=== PATIENT | female | born 1995 | race Two or more races ===

== ENCOUNTER 2018-01-03 21:12 | Emergency (ER) | payer SELFPAY ==
[2018-01-03] MEDS: TETRACAINE 0.5% OPHTH SOLUTION 4ML BOTTLE. OU (21:37)
[2018-01-03] MEDS: FLUORESCEIN OPHTH TEST STRIP. OU (21:37)
== END 2018-01-03 21:49 | disposition home or self-care (01) ==
LOC: ER 21:12
DX: H10.9 Unspecified conjunctivitis (principal); F12.10 Cannabis abuse, uncomplicated
CPT/HCPCS: 99283

== ENCOUNTER 2018-10-26 09:34 | Emergency (ER) | payer SELFPAY ==
[~2018-10-26] VITALS: Ht 167.6 cm; Wt 77.1 kg
[~2018-10-26 09:34] MED LIST: CIPR2.5D EACHEYE; CYCL10TA2 PO
[2018-10-26 10:01] VITALS: BP 115/66
--- NOTE | 2018-10-26 10:02 | PHYS DOC ---
Past Medical History Past Medical History: No Pertinent History Past Surgical History: No Surgical History Alcohol Use: None Drug Use: Marijuana Adult General Chief Complaint Chief Complaint: BACK PAIN - NO INJURY HPI HPI Patient is a 23 year old female who presents with low back pain. This started yesterday she was getting out of her truck. No loss of bowel or bladder control. No fever. No trauma. Patient has been having minor low back pain issues for a while. Patient works as a log loader, has been in the job for the past year. Denies any increased lifting, twisting, turning. Patient has no personal history of cancer. No prolonged travel.[] Review of Systems Review of Systems Constitutional: Denies fever or chills [] Eyes: Denies change in visual acuity, redness, or eye pain [] HENT: Denies nasal congestion or sore throat [] Respiratory: Denies cough or shortness of breath [] Cardiovascular: No chest pain or palpitations[] GI: Denies abdominal pain, nausea, vomiting, bloody stools or diarrhea [] : Denies dysuria or hematuria [] Musculoskeletal: Denies joint pain, see history of present illness [] Integument: Denies rash or skin lesions [] Neurologic: Denies headache, focal weakness or sensory changes [] Endocrine: Denies polyuria or polydipsia [] All other systems were reviewed and found to be within normal limits, except as documented in this note. Current Medications Current Medications Current Medications Medications (Trade) Dose Ordered Sig/Ousmane Start Time Stop Time Status Last Admin Dose Admin Ketorolac Tromethamine (Toradol 15mg Vial) 15 mg 1X ONCE 10/26/18 10:30 10/26/18 10:31 DC 10/26/18 10:18 15 MG Allergies Allergies Allergies Coded Allergies Type Severity Reaction Last Updated Verified No Known Drug Allergies 09/06/13 No Physical Exam Physical Exam Constitutional: Well developed, well nourished, mild to moderate discomfort, non -toxic appearance. [] HENT: Normocephalic, atraumatic, bilateral external ears normal, oropharynx moist, no oral exudates, nose normal. [] Eyes: PERRLA, EOMI, conjunctiva normal, no discharge. [] Neck: Normal range of motion, no tenderness, supple, no stridor. [] Cardiovascular:Heart rate regular rhythm, no murmur [] Lungs & Thorax: Bilateral breath sounds clear to auscultation [] Abdomen: Bowel sounds normal, soft, no tenderness, no masses, no pulsatile masses. [] Skin: Warm, dry, no erythema, no rash. [] Back: Tenderness over the left lumbar paraspinal musculature. No step-off, no crepitus, normal gait[] Extremities: No tenderness, no cyanosis, no clubbing, ROM intact, no edema. [] Neurologic: Alert and oriented X 3, normal motor function, normal sensory function, no focal deficits noted. [] Psychologic: Affect normal, judgement normal, mood normal. [] Current Patient Data Vital Signs Vital Signs Date Time Temp Pulse Resp B/P (MAP) Pulse Ox O2 Delivery O2 Flow Rate FiO2 10/26/18 10:01 98.3 84 20 115/66 (82) 96 Room Air 98.3 Lab Values Laboratory Tests Test 10/26/18 09:40 Urine Collection Type Unknown Urine Color Yellow Urine Clarity Clear Urine pH 6.0 Urine Specific [place] 1.025 Urine Protein Negative mg/dL (NEG-TRACE) Urine Glucose (UA) Negative mg/dL (NEG) Urine Ketones (Stick) Negative mg/dL (NEG) Urine Blood Negative (NEG) Urine Nitrite Negative (NEG) Urine Bilirubin Negative (NEG) Urine Urobilinogen Dipstick 1.0 mg/dL (0.2 mg/dL) Urine Leukocyte Esterase Negative (NEG) Urine RBC 1-2 /HPF (0-2) Urine WBC 1-4 /HPF (0-4) Urine Squamous Epithelial Cells Many /LPF Urine Bacteria Many /HPF (0-FEW) Urine Mucus Marked /LPF Urine Test Negative (NEG) EKG EKG [] Radiology/Procedures Radiology/Procedures PROCEDURE: LUMBAR SPINE 2-3V LUMBAR SPINE 2-3V History: LOWER BACK PAIN AFTER INJURY X1 DAY AGO. RADIATES DOWN LEFT LEG. Comparison: None Vertebral body height and alignment are intact. Minimal loss of height of the L4-L5 intervertebral disc. Disc spaces otherwise intact. No aggressive bone destruction. No evidence of an acute fracture. Moderate retained stool in the right colon. IMPRESSION: No evidence of acute fracture or subluxation. Electronically signed by: Jesse Jeffers MD (10/26/2018 10:40 AM) [email or web address][] Course & Med Decision Making Course & Med Decision Making Pertinent Labs and Imaging studies reviewed. (See chart for details) Medical decision making: No evidence of pyelonephritis, no evidence of ectopic since both the UA and the test were negative. No evidence of an acute spinous process. No evidence of meningitis or encephalitis.[] Dragon Disclaimer Dragon Disclaimer This electronic medical record was generated, in whole or in part, using a voice recognition dictation system. Departure Departure Impression: Primary Impression: Low back pain Disposition: HOME, SELF-CARE Condition: IMPROVED Referrals: NO PCP (PCP) Patient Instructions: Back Pain, Adult Additional Instructions: Follow-up with your regular doctor in 2 days. If you do not have a regular doctor list of local clinics will be provided for you. Return to the ER if worsening pain, fever of more than 101, loss of bowel or bladder control, or any other concerns. Scripts Orphenadrine Citrate (ORPHENADRINE CITRATE) 100 Mg Tablet.er 100 MG PO BID, #20 TAB.SR Prov: TORREY WHITE DO 10/26/18 Meloxicam (MELOXICAM) 7.5 Mg Tablet 7.5 MG PO DAILY, #20 TAB Prov: TORREY WHITE DO 10/26/18 Problem Qualifiers Primary Impression: Low back pain Chronicity: acute Back pain laterality: left Sciatica presence: without sciatica Qualified Codes: M54.5 - Low back pain TORREY WHITE DO Oct 26, 2018 10:02
[2018-10-26 10:03] LABS: BILIRUBIN,URINE NEGATIVE (NEG); CLARITY,URINE CLEAR; COLOR,URINE YELLOW; NITRITE,URINE NEGATIVE (NEG); PROTEIN,URINE NEGATIVE (NEG-TRACE)
[2018-10-26 10:09] LABS: U PREG PATIENT NEGATIVE (NEG)
[2018-10-26 10:14] LABS: BACTERIA,URINE MANY /HPF (0-FEW); SQUAMOUS EPITHELIAL CELL,UR MANY /LPF
[2018-10-26] MEDS ORDERED: KETOROLAC 15 MG/ML VIAL. IM ONE (10:30)
--- NOTE | 2018-10-26 10:44 | RAD ---
LUMBAR SPINE 2-3V History: LOWER BACK PAIN AFTER INJURY X1 DAY AGO. RADIATES DOWN LEFT LEG. Comparison: None Vertebral body height and alignment are intact. Minimal loss of height of the L4-L5 intervertebral disc. Disc spaces otherwise intact. No aggressive bone destruction. No evidence of an acute fracture. Moderate retained stool in the right colon. IMPRESSION: No evidence of acute fracture or subluxation. Electronically signed by: Jesse Jeffers MD (10/26/2018 10:40 AM) [email or web address]
[2018-10-26] MEDS ORDERED: MELO7.5T29 PO (10:50)
[2018-10-26] MEDS ORDERED: ORPH100T PO (10:50)
[2018-10-26] MEDS ORDERED: CYCLOBENZAPRINE 10 MG TABLET. PO ONE (11:30)
== END 2018-10-26 11:37 | disposition home or self-care (01) ==
LOC: ER 09:34
DX: M54.5 Low back pain (principal)
CPT/HCPCS: 72100; 81001; 81025; 87086; 96372; 99284; J1885

== ENCOUNTER 2019-10-27 09:15 | Emergency (ER) | payer SELFPAY ==
[~2019-10-27] VITALS: Ht 167.6 cm; Wt 72.2 kg
[~2019-10-27 09:15] MED LIST changes: +MELO7.5T29 PO; +ORPH100T PO
[2019-10-27 10:09] VITALS: BP 118/64
[2019-10-27] MEDS ORDERED: CEPH-264 PO (10:14)
[2019-10-27] MEDS ORDERED: HYDR-3164 PO (10:14)
[2019-10-27] MEDS ORDERED: LIDOCAINE 1% Multi-Dose 20 ML VIAL. INJ ONE (10:15)
[2019-10-27] MEDS ORDERED: HYDROcodone/APAP 5/325MG 1 TAB TABLET PO ONE (10:15)
--- NOTE | 2019-10-27 10:15 | PHYS DOC ---
Past Medical History Past Medical History: No Pertinent History Past Surgical History: No Surgical History Smoking Status: Current Some Day Smoker Alcohol Use: None Drug Use: None Adult General Chief Complaint Chief Complaint: ABSCESS HPI HPI Patient is a 24 year old female who presents with right labial abscess for last week. Patient rates her pain a 10 out of 10. She denies any fevers, nausea, vomiting, abdominal pain, dysuria, diarrhea. Review of Systems Review of Systems Integument: Labial abscess. Denies rash or skin lesions [] All other systems were reviewed and found to be within normal limits, except as documented in this note. Current Medications Current Medications Current Medications Medications (Trade) Dose Ordered Sig/Ousmane Start Time Stop Time Status Last Admin Dose Admin Acetaminophen/ Hydrocodone Bitart (Lortab 5/325) 1 tab 1X ONCE 10/27/19 10:15 10/27/19 10:16 DC 10/27/19 10:21 1 TAB Lidocaine HCl (Lidocaine 1% 20ml Vial) 20 ml 1X ONCE 10/27/19 10:15 10/27/19 10:16 DC 10/27/19 10:22 20 ML Allergies Allergies Allergies Coded Allergies Type Severity Reaction Last Updated Verified No Known Drug Allergies 09/06/13 No Physical Exam Physical Exam Constitutional: Well developed, well nourished, no acute distress, non-toxic appearance. [] HENT: Normocephalic, atraumatic, bilateral external ears normal, oropharynx moist, no oral exudates, nose normal. [] Eyes: PERRLA, EOMI, conjunctiva normal, no discharge. [] Neck: Normal range of motion, no tenderness, supple, no stridor. [] Cardiovascular:Heart rate regular rhythm, no murmur [] Lungs & Thorax: Bilateral breath sounds clear to auscultation [] Abdomen: Bowel sounds normal, soft, no tenderness, no masses, no pulsatile masses. [] Skin: Warm, dry, no erythema, no rash. Right labial abscess dollar coin sized. [] Back: No tenderness, no CVA tenderness. [] Extremities: No tenderness, no cyanosis, no clubbing, ROM intact, no edema. [] Neurologic: Alert and oriented X 3, normal motor function, normal sensory f unction, no focal deficits noted. [] Psychologic: Affect normal, judgement normal, mood normal. [] Current Patient Data Vital Signs Vital Signs Date Time Temp Pulse Resp B/P (MAP) Pulse Ox O2 Delivery O2 Flow Rate FiO2 10/27/19 10:09 99.0 64 18 118/64 (82) 100 Room Air 99.0 EKG EKG [] Radiology/Procedures Radiology/Procedures [] Course & Med Decision Making Course & Med Decision Making Pertinent Labs and Imaging studies reviewed. (See chart for details) Rates her pain a 10 out of 10. Associated Cellulitis or pink tenderness of surrounding skin. Patient to follow-up in 48 hours for a wound recheck. Patient is placed on Keflex. Abscess Incision and Drainage with irrigation by me: Location: Right labia Anesthesia: Local 1% Lidocaine Technique: Irrigated. Disrupted loculations w/ instrumentation Packing: None Complications: Neurovascularly intact post procedure 48 hour wound check. Scar minimization instructions given. ED Ultrasound: Abscess localized by me using concurrent ultrasound guidance and assessment of the anatomy. Real time image archived in the medical record confirms anatomy. Patient's skin symptoms have stabilized while they have been evaluated in the department and are appropriate for outpatient care and work up. Exam and w/u not consistent w/ sepsis, deep space infection, or foreign body. [] Dragon Disclaimer Dragon Disclaimer This electronic medical record was generated, in whole or in part, using a voice recognition dictation system. Departure Departure Impression: Primary Impression: Abscess Disposition: 01 HOME, SELF-CARE Condition: STABLE Referrals: NO PCP (PCP) Patient Instructions: Abscess, Care After, Abscess, Perineal, Sitz Bath Additional Instructions: Use sitz baths. Take all of medication as prescribed. Follow up with doctor or here at the hospital in 48 hours for a wound recheck. Scripts Hydrocodone/Apap 5-325 (NORCO 5-325 TABLET) 1 Each Tablet 1 TAB PO PRN Q6HRS PRN for PAIN, #10 TAB 0 Refills Prov: LAUREN GIBSON [employer]ING OFFICER 10/27/19 Cephalexin (KEFLEX) 500 Mg Capsule 1 CAP PO TID for 7 Days, #21 CAP 0 Refills Prov: LAUREN GIBSON [employer] COMMANDING OFFICER 10/27/19 LAUREN GIBSON POLICE COMMANDING OFFICER Oct 27, 2019 10:15
== END 2019-10-27 10:51 | disposition home or self-care (01) ==
LOC: ER 09:15
DX: N76.4 Abscess of vulva (principal); F17.200 Nicotine dependence, unspecified, uncomplicated
CPT/HCPCS: 56405; 99284-25

== ENCOUNTER 2020-04-16 03:35 | Emergency (ER) | payer SELFPAY ==
[~2020-04-16] VITALS: Ht 167.6 cm; Wt 77.2 kg
[~2020-04-16 03:35] MED LIST changes: +CEPH-264 PO; +HYDR-3164 PO
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
[2020-04-16 04:37] LABS: BILIRUBIN,URINE SMALL (NEG); CLARITY,URINE CLOUDY; COLOR,URINE AMBER; NITRITE,URINE NEGATIVE (NEG); PROTEIN,URINE 30 mg/dL (NEG-TRACE)
[2020-04-16 04:42] LABS: BASO # 0.1 x10^3/uL (0.0-0.2); BASO % 1 % (0-3); EOS % 1 % (0-3); HEMATOCRIT 34.2 % (36.0-47.0); HEMOGLOBIN 11.6 g/dL (12.0-15.5); LYMPH # 1.1 x10^3/uL (1.0-4.8); LYMPH % 11 % (24-48); MEAN CORPUSCULAR HEMOGLOBIN 31 pg (25-35); MEAN CORPUSCULAR HGB CONC 34 g/dL (31-37); MEAN CORPUSCULAR VOLUME 91 fL (79-100); MONO # 0.6 x10^3/uL (0.0-1.1); MONO % 6 % (0-9); NEUT # 8.2 x10^3/uL (1.8-7.7); NEUT % 81 % (31-73); PLATELET COUNT 261 x10^3/uL (140-400); RED BLOOD COUNT 3.77 x10^6/uL (3.50-5.40); RED CELL DISTRIBUTION WIDTH 12.8 % (11.5-14.5); WHITE BLOOD COUNT 10.1 x10^3/uL (4.0-11.0)
[2020-04-16 04:44] LABS: BARBITURATES NEG (NEG); BENZODIAZEPINES NEG (NEG); CANNABINOIDS NEG (NEG); COCAINE NEG (NEG); METHADONE NEG (NEG); OPIATES NEG (NEG); PHENCYCLIDINE NEG (NEG)
[2020-04-16] MEDS ORDERED: DIPH,PERTUSS(ACELL),TET VAC/PF 0.5 ML SYRINGE. VAX IM ONE (04:45)
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
[2020-04-16 04:48] LABS: AMPHETAMINE/METHAMPHETAMINE NEG (NEG)
[2020-04-16 04:51] LABS: PROTHROMBIN TIME PATIENT 13.6 SEC (11.7-14.0)
[2020-04-16 04:54] LABS: CREATININE 0.9 mg/dL (0.6-1.0); GFR 75.7; POTASSIUM 3.6 mmol/L (3.5-5.1)
[2020-04-16 05:00] LABS: AMORPHOUS SEDIMENT,UR PRESENT /HPF; BACTERIA,URINE FEW /HPF (0-FEW); SQUAMOUS EPITHELIAL CELL,UR MOD /LPF
[2020-04-16 06:10] VITALS: BP 115/61
== END 2020-04-16 06:05 | disposition home or self-care (01) ==
LOC: ER 03:35
DX: S01.81XA Laceration without foreign body of other part of head, initial encounter (principal); S20.221A Contusion of right back wall of thorax, initial encounter; S06.0X1A Concussion with loss of consciousness of 30 minutes or less, initial encounter; F10.229 Alcohol dependence with intoxication, unspecified; R55 Syncope and collapse; M54.5 Low back pain; F17.200 Nicotine dependence, unspecified, uncomplicated; Y08.89XA Assault by other specified means, initial encounter; Y93.89 Activity, other specified; Y92.89 Other specified places as the place of occurrence of the external cause; Y99.8 Other external cause status
CPT/HCPCS: 12011; 36415; 70450; 70486; 72125; 80048; 80307; 81001; 81025; 85025; 85610; 85730; 90471; 90715; 99285; G0480

== ENCOUNTER 2020-08-15 15:05 | Emergency (ER) | payer SELFPAY ==
[~2020-08-15] VITALS: Ht 167.6 cm; Wt 86.0 kg
[~2020-08-15 15:05] MED LIST changes: -CIPR2.5D EACHEYE; +CIPR2.5D2 EACHEYE
--- NOTE | 2020-08-15 15:26 | PHYS DOC ---
Past Medical History Past Medical History: No Pertinent History (KESHIA RODRIGUEZ APRN) Past Surgical History: No Surgical History (KESHIA RODRIGUEZ APRN) Smoking Status: Current Some Day Smoker Alcohol Use: Occasionally Drug Use: None (KESHIA RODRIGUEZ APRN) General Adult EDM: Chief Complaint: LACERATION/AVULSION HPI: HPI: Patient is a 24 year old female patient who presents with laceration to left hand. REports she had been opening a new knife when the blade had cut her hand, reports episode approximately 1 hour prior to coming to the ER. states full sensation, states full and normal movement. Denies additional complaints. States she is not sure when her last tetanus shot was (KESHIA RODRIGUEZ APRN) Review of Systems: Review of Systems: Constitutional: Denies fever or chills. [] Respiratory: Denies cough or shortness of breath. [] Cardiovascular: Denies chest pain or edema. [] GI: Denies abdominal pain, nausea, vomiting, bloody stools or diarrhea. [] Musculoskeletal: Denies back pain or joint pain. States she can still move her thumb and digits ok [] Integument: Complains of laceration Neurologic: Denies headache, focal weakness or sensory changes. [] Denies loss of sensation Lymphatic: Denies swollen glands. [] Psychiatric: Denies depression or anxiety. [] (KESHIA RODRIGUEZ APRN) Heart Score: Risk Factors: Risk Factors: DM, Current or recent (<one month) smoker, HTN, HLP, family history of CAD, obesity. Risk Scores: Score 0 - 3: 2.5% MACE over next 6 weeks - Discharge Home Score 4 - 6: 20.3% MACE over next 6 weeks - Admit for Clinical Observation Score 7 - 10: 72.7% MACE over next 6 weeks - Early Invasive Strategies (KESHIA RODRIGUEZ APRN) Allergies: Allergies: Allergies Coded Allergies Type Severity Reaction Last Updated Verified No Known Drug Allergies 09/06/13 No (KESHIA RODRIGUEZ APRN) Physical Exam: PE: Constitutional: Well developed, well nourished, no acute distress, non-toxic appearance. [] HENT: Normocephalic, atraumatic, bilateral external ears normal, oropharynx moist, no oral exudates, nose normal. [] Neck: Normal range of motion, no tenderness, supple, no stridor. [] Cardiovascular:Heart rate regular rhythm, no murmur [] Skin: left thumb and posterior hand with noted 3 cm laceration partial thickness extending into webbing of left thumb and to posteriolateral aspect of thumb. Extremities: No tenderness, no cyanosis, no clubbing, ROM intact, no edema. Able to move all digits, able to move thumb. No visualization of tendons within laceration[] Neurologic: Alert and oriented X 3, normal motor function, normal sensory function, no focal deficits noted. Sensation reported intact to all digits[] Psychologic: Affect normal, judgement normal, mood normal. [] (KESHIA RODRIGUEZ APRN) EKG: EKG: [] (KESHIA RODRIGUEZ APRN) Radiology/Procedures: Radiology/Procedures: [] (KESHIA RODRIGUEZ APRN) Course & Med Decision Making: Course & Med Decision Making Pertinent Labs and Imaging studies reviewed. (See chart for details) []Simple laceration repaired. Full ROM of thumb and able to flex and extend all digits following suturing. Tdap updated today. (KESHIA RODRIGUEZ APRN) Course & Med Decision Making I have reviewed the PA/RANGE OPERATOR's note and Plan of Care. I was available for consul tation as needed during the patient's visit in the emergency department. I agree with the clinical impression, plans and disposition. (LEVY TERESA MD) Dragon Disclaimer: Dragon Disclaimer: This electronic medical record was generated, in whole or in part, using a voice recognition dictation system. (KESHIA RODRIGUEZ APRN) Laceration Repair Lac Repair Indication: Laceration Procedure: The patient was placed in the appropriate position and anesthesia around the laceration was placed using 7 ml 1% lidocaine without Epi. The area was cleansed with water. The laceration was closed with (10) simple interrupted 4/0 prolene sutures. No additional lacerations noted. The wound area was then dressed with non occlusive gauze. Total repaired wound length: 3 cm. Other Items: none The patient tolerated the procedure well . Complications: None (KESHIA RODRIGUEZ APRN) Departure Departure Impression: Primary Impression: Laceration of left thumb without complication Qualified Codes: S61.012A - Laceration without foreign body of left thumb without damage to nail, initial encounter Disposition: 01 DC HOME SELF CARE/HOMELESS Condition: STABLE Referrals: NO PCP (PCP) Patient Instructions: Laceration Care, Adult Additional Instructions: As we discussed, your stitches can come out in 10 days. You may do this at your primary care office, or here. As we discussed, keep clean area clean and dry for the next 24 hours after that you may wash your hand as normal. Try to avoid scrubbing over the sutures. You may take Tylenol or ibuprofen as needed for discomfort. Your tetanus shot has been updated today, take note of this and 100 contact your primary care to let them know that this has been updated. KESHIA RODRIGUEZ APRN Aug 15, 2020 15:26 LEVY TERESA MD Aug 15, 2020 17:23
[2020-08-15] MEDS ORDERED: LIDOCAINE 1% PF 5 ML VIAL. INJ ONE ×2 (15:30→15:45)
[2020-08-15] MEDS ORDERED: DIPH,PERTUSS(ACELL),TET VAC/PF 0.5 ML SYRINGE. VAX IM ONE (16:15)
[2020-08-15 16:25] VITALS: BP 125/78
== END 2020-08-15 16:25 | disposition home or self-care (01) ==
LOC: ER 15:05
DX: S61.012A Laceration without foreign body of left thumb without damage to nail, initial encounter (principal); F17.200 Nicotine dependence, unspecified, uncomplicated; W26.0XXA Contact with knife, initial encounter; Y93.89 Activity, other specified; Y92.89 Other specified places as the place of occurrence of the external cause; Y99.8 Other external cause status
CPT/HCPCS: 12002; 90471; 90715; 99283; J3490